=== PATIENT | male | born 1950 | race Caucasian/White ===

== ENCOUNTER 2017-09-11 07:10 | Day surgery (SDC) ==
[2017-09-11] MEDS: TETRACAINE 0.5% UNIT-DOSE OP PRN ×2 (07:50→08:40)
[2017-09-11] MEDS ORDERED: LIDOCAINE 1% 20 ML MDV ID STA (07:50)
[2017-09-11] MEDS: CYCLOGYL 2% OPTH OP PRN ×3 (07:52→08:00)
[2017-09-11] MEDS ORDERED: LIDOCAINE 1%/PHENYLEPHRINE 1.5% BSS (SURGERY) IO ONE (08:00)
[2017-09-11] MEDS ORDERED: BRIMONIDINE TARTRATE 0.2% OPTH SOL OP PRN (08:09)
[2017-09-11] MEDS ORDERED: NIRAVAM ODT (SURGERY) PO PRN (08:09)
[2017-09-11] MEDS ORDERED: MOXIFLOXACIN 150 MCG/0.1 ML-BSS INJ (SURGERY) IO ONE (08:09)
[2017-09-11] MEDS ORDERED: BETADINE OPTH PREP OP PRN (08:09)
[2017-09-11] MEDS ORDERED: OMIDRIA 1-0.3% IN BSS BAG IO ONE (08:09)
[2017-09-11] MEDS ORDERED: ZOFRAN 4 MG/2 ML IVP ONE (08:09)
[2017-09-11] MEDS ORDERED: AK-DILATE 10% OPTH SOL OP PRN (08:09)
[2017-09-11] MEDS ORDERED: VERSED ONE (08:50)
[2017-09-11] MEDS ORDERED: ROBINOL IVP ONE (08:50)
[2017-09-11] MEDS ORDERED: TORADOL ONE (08:50)
[2017-09-11] MEDS ORDERED: SUBLIMAZE ONE (08:50)
[2017-09-11] MEDS ORDERED: DIPRIVAN 20 ML VIAL IVP ONE (08:50)
[2017-09-11] MEDS ORDERED: ROBINOL ONE (08:50)
[2017-09-11 16:52] VITALS: TEMP 97.6
[2017-09-11 16:53] VITALS: BP 126/73
== END 2017-09-11 10:00 | disposition home or self-care (01) ==
LOC: SURG 07:10
PROVIDERS: ATTEND Ophthalmology
DX: H25.11 Age-related nuclear cataract, right eye (principal)